=== PATIENT | female | born 1985 | race Two or more races ===

== ENCOUNTER 2016-09-16 04:34 | Emergency (ER) | payer BC, OTHER ==
[~2016-09-16] VITALS: Ht 172.7 cm; Wt 81.6 kg
[2016-09-16] MEDS ORDERED: KETOROLAC TROMETHAMINE INJ 30 MG/ML VIAL ONE (04:43)
[2016-09-16] MEDS ORDERED: ONDANSETRON HCL/PF 4 MG/2 ML VIAL ONE (04:43)
[2016-09-16] MEDS ORDERED: HYDROMORPHONE 1 MG/1 ML DISP.SYRIN ONE ×3 (04:45→07:03)
[2016-09-16 05:00] LABS: BASOPHILS % (AUTO) 0.7 % (0.0-2.0); DIFF TOTAL % 100 %; EOSINOPHILS % (AUTO) 0.6 % (0.0-6.0); HEMATOCRIT 40 % (33-45); HEMOGLOBIN 13.6 g/dL (11.5-14.8); LYMPHOCYTES # (AUTO) 2.2 /CMM (0.8-4.8); MEAN CORPUSCULAR HEMOGLOBIN 31 PG (26.0-33.0); MEAN CORPUSCULAR HGB CONC 34 g/dl (31.0-36.0); MEAN CORPUSCULAR VOLUME 93 fL (82-100); MONOCYTES # (AUTO) 0.5 /CMM (0.1-1.30); NEUTROPHILS # (AUTO) 2.2 /CMM (1.8-8.9); NEUTROPHILS % (AUTO) 43.7 % (43.0-81.0); PLATELET COUNT (AUTO) 281 /CMM (150-450); RED BLOOD CELL COUNT(AUTO) 4.32 MIL/uL (4.0-5.2)
[2016-09-16] MEDS ORDERED: HYDROMORPHONE INJ 2 MG/ML DISP.SYRIN IV ONE (05:00)
[2016-09-16] MEDS ORDERED: KETOROLAC TROMETHAMINE INJ 30 MG/ML VIAL IV ONE ×2 (05:00→05:30)
[2016-09-16] MEDS ORDERED: IV NS 0.9% 1,000 ML BAG IV ONE (05:00)
[2016-09-16] MEDS ORDERED: ONDANSETRON HCL/PF 4 MG/2 ML VIAL IVP ONE (05:00)
[2016-09-16 05:08] LABS: CALCIUM, SERUM 8.6 mg/dL (8.5-10.1); CREATININE 0.8 mg/dL (0.6-1.3); POTASSIUM 3.3 mmol/L (3.5-5.1)
[2016-09-16 05:14] LABS: ALBUMIN 4.1 g/dL (3.4-5.0); BILIRUBIN,DIRECT 0.1 mg/dL (0.0-0.2); BILIRUBIN,TOTAL 0.4 mg/dL (0.2-1.0); INDIRECT BILIRUBIN 0.3 mg/dL (0.0-1.1); TOTAL PROTEIN, SERUM 7.8 g/dL (6.4-8.2)
[2016-09-16] MEDS ORDERED: IV SET PRIMARY 1 EA INFUS.SET MC ONE (05:24)
[2016-09-16] MEDS ORDERED: IV NS 0.9% 1,000 ML ONE (05:24)
[2016-09-16] MEDS ORDERED: HYDROMORPHONE 1 MG/1 ML DISP.SYRIN IV ONE ×2 (05:30→06:30)
[2016-09-16 05:49] LABS: INR 0.99 (0.87-1.13); PROTHROMBIN TIME 10.7 SECS (9.5-12.7)
[2016-09-16 06:00] LABS: KETONES,URINE NEGATIVE (NEGATIVE); LEUKOCYTE ESTERASE ,URINE NEGATIVE (NEGATIVE); PH,URINE 6.5 (5.0-8.0)
[2016-09-16 06:02] LABS: ADD UA MICROSCOPIC YES
[2016-09-16 06:03] LABS: PREGNANCY TEST URINE QUAL NEGATIVE (NEGATIVE)
[2016-09-16 07:40] LABS: ADD URINE CULTURE YES; RBC,URINE TOO NUMEROUS TO COUN /HPF (0-2)
[2016-09-16 07:52] VITALS: BP 123/64
== END 2016-09-16 07:53 | disposition home or self-care (01) ==
LOC: ER 04:36
DX: N23 Unspecified renal colic (principal); N20.0 Calculus of kidney; Z88.2 Allergy status to sulfonamides
CPT/HCPCS: 36415; 74176; 80048; 80076; 81001; 83690; 84703; 85025; 85730; 87086; 96361; 96374; 96375; 96376; 99285; A4606; J1170 ×3; J1885; J2405; J7030; 81000-TC; Z7610